=== PATIENT | female | born 1985 | race Caucasian/White ===

== ENCOUNTER 2023-05-19 08:12 | Emergency (ER) | payer MEDICAID ==
[~2023-05-19] VITALS: Ht 172.7 cm; Wt 76.3 kg
[2023-05-19 08:23] VITALS: BP 126/79; PULSE 75; RESP 16; O2SAT 98
[2023-05-19 09:27] LABS: Basophils # (auto) 0 10 ^3/uL (0-0.2); Basophils % (auto) 0.8 % (0.0-2.0); Eosinophils # (auto) 0.1 10 ^3/uL (0-0.8); Eosinophils % (auto) 2.2 % (0.0-7.0); Hematocrit 42.8 % (36.0-46.0); Hemoglobin 14.4 g/dL (12.2-16.2); Lymphocytes # (auto) 1.7 10 ^3/uL (0.4-5.4); Lymphocytes % (auto) 30.7 % (10.0-50.0); Mean Corpuscular Hemoglobin 31.4 pg (28.0-32.0); Mean Corpuscular Hgb Conc. 33.6 g/dL (32.0-36.0); Mean Corpuscular Volume 93.5 fL (80.0-100.0); Monocytes # (auto) 0.4 10 ^3/uL (0-1.3); Monocytes % (auto) 8.1 % (0.0-12.0); Neutrophils # (auto) 3.2 10 ^3/uL (1.6-8.6); Neutrophils % (auto) 58.2 % (37.0-80.0); Red Blood Cells 4.58 10^6/uL (4.0-5.20); Red Cell Distribution Width 12.8 % (11.8-14.3); White Blood Cell 5.6 10^3/uL (4.4-10.8)
[2023-05-19 10:08] LABS: Alanine Aminotransferase 13 U/L (7-40); Albumin 4.2 g/dL (3.2-4.8); Alkaline Phosphatase 41 U/L (46-116); Anion Gap 4.9 (5-15); Aspartate Aminotransferase 12 U/L (13-40); BUN/Creatinine Ratio 10.5 (10.0-20.0); Blood Urea Nitrogen 8 mg/dL (9-23); Calcium 9.3 mg/dL (8.5-10.1); Carbon Dioxide 26.1 mmol/L (20-30); Chloride 107 mmol/L (98-107); Glucose 85 mg/dL (74-106); Potassium 4.1 mmol/L (3.5-5.1); Sodium 138 mmol/L (136-145)
[2023-05-19 10:09] LABS: Bilirubin, Total 0.4 mg/dL (0.2-1.0); Total Protein 6.5 g/dL (5.7-8.2)
[2023-05-19 10:48] LABS: Urine Bacteria NONE SEEN /hpf (None Seen); Urine Blood Negative /uL (Negative); Urine Clarity Clear (Clear); Urine Color Yellow (Yellow); Urine Mucus FEW (None Seen); Urine Protein, UAD Negative (Negative); Urine Specific Gravity 1.024 (1.001-1.035); Urine Urobilinogen Normal (Negative); Urine WBC <1 /hpf (0 - 5); Urine pH 5.5 (5.0-8.0)
== END 2023-05-19 12:45 | disposition home or self-care (01) ==
LOC: ER 08:12
DX: N93.0 Postcoital and contact bleeding (principal); N83.201 Unspecified ovarian cyst, right side; Z97.5 Presence of (intrauterine) contraceptive device; Z88.0 Allergy status to penicillin
CPT/HCPCS: 36415; 76856; 80053; 81001; 85025

== ENCOUNTER 2025-01-09 04:49 | Emergency (ER) | payer MEDICAID ==
[~2025-01-09] VITALS: Ht 172.7 cm; Wt 77.5 kg
--- NOTE | 2025-01-09 04:58 | ED.PDOC ---
HPI Allergic reaction HPI Comments 31-year-old female presents to the ED chief complaint possible allergic reaction. Patient states over the past several weeks she suddenly becomes flush and itchy was prescribed hydroxyzine she states she took it earlier today with no relief. She also notes itch itchiness. She denies chest pain, difficulty breathing, shortness of breath, dizziness, nausea, vomiting, throat swelling or difficulty swallowing. Time Seen by MD: 04:52 Primary Care Provider: RAMONA Reviewed Notes: Nurses Notes, Medications, Allergies Allergies: Coded Allergies: No Known Drug Allergy (Verified Allergy, Unknown, 11/24/15) Penicillins (Verified Allergy, Unknown, 11/24/15) Information Source: Patient Past Medical History PAST MEDICAL HISTORY: Denies Surgical History: Denies all surgeries EARTH OBSERVATIONS CHIEF SCIENTIST History: No Pertinent EARTH OBSERVATIONS CHIEF SCIENTIST History Family History Family History: Unknown Social History Smoker: Non-Smoker Alcohol: Denies ETOH Use Drugs: Denies Drug Use Constitutional: denies: chills, diaphoresis, fatigue, fever, malaise, sweats, weakness, others EENTM: denies: blurred vision, double vision, ear bleeding, ear discharge, ear drainage, ear pain, ear ringing, eye pain, eye redness, hearing loss, mouth pain, mouth swelling, nasal discharge, nose bleeding, nose congestion, nose pain, photophobia, tearing, throat pain, throat swelling, voice changes, others Respiratory: denies: cough, hemoptysis, orthopnea, SOB at rest, shortness of breath, SOB with excertion, stridor, wheezing, others Cardiovascular: denies: chest pain, dizzy spells, diaphoresis, Dyspnea on exertion, edema, irregular heart beat, left arm pain, lightheadedness, palpitations, PND, syncope, others Gastrointestinal: denies: abdomen distended, abdominal pain, blood streaked bowels, constipated, diarrhea, dysphagia, difficulty swallowing, hematemesis, melena, nausea, poor appetite, poor fluid intake, rectal bleeding, rectal pain, vomiting, others Genitourinary: denies: abnormal vagina bleeding, burning, dyspareunia, dysuria, flank pain, frequency, hematuria, incontinence, pain, , vagina discharge, urgency, others Neurological: denies: dizziness, fainting, headache, left sided numbness, left sided weakness, numbness, paresthesia, pre-existing deficit, right sided numbness, right sided weakness, seizure, speech problems, tingling, tremors, weakness, others Musculoskeletal: denies: back pain, gout, joint pain, joint swelling, muscle pain, muscle stiffness, neck pain, others Integumetry: reports: rash; denies: bruises, change in color, change in hair/nails, dryness, laceration, lesions, lumps, wounds, others Allergic/Immunocompromised: denies: Difficulty Healing, Frequent Infections, Hives, Itching, others Hematologic/Lymphatic: denies: anemia, blood clots, easy bleeding, easy bruising, swollen glands, others Endocrine: denies: excessive hunger, excessive sweating, excessive thirst, excessive urination, flushing, intolerance to cold, intolerance to heat, unexplained weight gain, unexplained weight loss, others Psychiatric: denies: anxiety, bipolar disorder, depression, hopeless, panic disorder, schizophrenia, sleepless, suicidal, others Physical Exam General Appearance: No Apparent Distress, Normal HEENT: Normal ENT Inspection, Pharynx Normal, TMs Normal Neck: Full Range of Motion, Non-Tender Respiratory: Lungs Clear, No Respiratory Distress, Normal Breath Sounds Cardiovascular: No Edema, No JVD, No Murmur, No Gallop, Normal Peripheral Pulses, Regular Rate/Rhythm Breast Exam: Deferred Gastrointestinal: No Organomegaly, Non Tender, No Pulsatile Mass, Normal Bowel Sounds, Soft Genitalia: Deferred Pelvic: Deferred Rectal: Deferred Extremities: Normal capillary refill, Normal inspection, Normal range of motion, Non-tender, No pedal edema Musculoskeletal : Apperance: Normal Neurologic: Alert, junior network administrator II-XII nml as Tested, No Motor Deficits, Normal Affect, Normal Mood, No Sensory Deficits Cerebellar Function: Normal Reflexes: Normal Skin: Dry, Normal Color, Warm, Other (Flush) Lymphatic: No Adenopathy Was a procedure done? Was a procedure done?: No Differential diagnosis (all) Differential Diagnosis: Anaphylaxis, Angioedema, Bronchospasm X-Ray, Labs, Meds, VS Vital Signs Date Time Temp Pulse Resp B/P (MAP) Pulse Ox O2 Delivery O2 Flow Rate FiO2 01/09/25 05:14 98.0 89 19 151/100 (117) 96 98.0 01/09/25 05:06 97.7 87 18 144/97 (113) 97 97.7 Current Medications Medications (Trade) Dose Ordered Sig/[place] Route Start Time Stop Time Status Last Admin Methylprednisolone Sodium Succinate (Solu Medrol) 125 mg ONCE ONCE IM 01/09/25 05:00 01/09/25 05:01 DC 01/09/25 05:12 Famotidine (Pepcid Tablet) 40 mg ONCE ONCE PO 01/09/25 05:00 01/09/25 05:01 DC 01/09/25 05:12 Diphenhydramine HCl (Benadryl Injection) 25 mg ONCE ONCE IV 01/09/25 05:00 01/09/25 05:01 DC 01/09/25 05:12 X-Ray, Labs, Meds, VS Comment Patient given Solu-Medrol 125 mg IV, Benadryl 25 mg IV, and Pepcid 40 mg p.o.. Patient states some improvement in itching continues to look flushing red. Advised patient to stay and be monitored for at least another 30 minutes let medication take effect patient stated she wanted to leave against medical advice because her ride is here. Advised her of risks such as difficulty breathing, shortness of breath, possible anaphylaxis and patient indicated understanding. Hep-Lock removed. Script Medrol Dosepak, Pepcid and [place] patient's pharmacy on file. Advised her to follow up with her PCP ER return precautions given. Time of 1ST Reevaluation: 04:58 Reevaluation 1ST: Unchanged Patient Education/Counseling: Diagnosis, Treatment, Prognosis, Need For Follow Up Family Education/Counseling: No Family Present Departure 1 Departure Time of Disposition: 05:45 Impression: Primary Impression: Allergic reaction Qualified Codes: T78.40XA - Allergy, unspecified, initial encounter Disposition: LEFT AGAINST MEDICAL ADVICE Condition: Stable e-Prescriptions Fexofenadine Hydrochloride (ANNE-MARIE ALLERGY) 180 Mg Tab 1 TAB PO DAILY for 10 Days, #10 TAB Prov: LINDA OH VEGETABLE VENDOR 01/09/25 Famotidine (PEPCID TABLET) 20 Mg Tb 1 TAB PO BID for 6 Days, #12 TAB Prov: LINDA OH VEGETABLE VENDOR 01/09/25 Methylprednisolone (Medrol Dosepak) 4 Mg Erlin 4 MG PO UD for 6 Days, #21 TAB UAD Prov: LINDA OH VEGETABLE VENDOR 01/09/25 Discharged With: Self Critical Care Note Critical Care Time?: No Stability Stability form required: No ALTHEA,LINDA VEGETABLE VENDOR Jan 09, 2025 04:58
[2025-01-09] MEDS: diphenhdrAMINE HCL 50 MG/1 ML VL IV ONE (05:12)
[2025-01-09] MEDS: methylPREDNISolone SOD SUCC 125 MG/2 ML VL IM ONE (05:12)
[2025-01-09] MEDS: FAMOTIDINE 20 MG TAB PO ONE (05:12)
[2025-01-09 05:14] VITALS: BP 151/100; PULSE 89; RESP 19; TEMP 98; O2SAT 96
[2025-01-09] MEDS ORDERED: METH4PAK PO (05:46)
[2025-01-09] MEDS ORDERED: FAMO20TA10 PO (05:46)
[2025-01-09] MEDS ORDERED: FEXO-42 PO (05:46)
== END 2025-01-09 05:37 | disposition left against medical advice (07) ==
LOC: ER 04:49
DX: T78.40XA Allergy, unspecified, initial encounter (principal); Z79.899 Other long term (current) drug therapy; Z88.0 Allergy status to penicillin; X58.XXXA Exposure to other specified factors, initial encounter
CPT/HCPCS: 96372; 96374; 99284; J1200; J2919